=== PATIENT | male | born 1990 | race Caucasian/White ===

== ENCOUNTER 2016-10-31 14:46 | Emergency (ER) | payer BC ==
--- NOTE | ~2016-10-31 | CT2 ---
[facility] A Service of [facility] & [facility] RADIOLOGY TEXT RESULTS PATIENT: FARTUN CINTRON LOCATION: SED : [birth year] UNIT #: [id number] AGE: [address]: Ralph Toscano MD SEX: M ORDER DR: [id number] [address] [address] [id number] E MR#: [id number] Acc #: [id number] NAME: FARTUN CINTRON : 1990 SEX: M STUDY DATE/TIME: 10/31/2016 16:13 UNIT: SED ROOM: STUDY DESCRIPTION: CT Abd and Pelv W Cont Attending Physician: aRlph Toscano M.D. Ordering Physician: Ralph Toscano M.D. MEDICAL IMAGING REPORT This report is preliminary unless electronic signature is present. EXAM CT abdomen and pelvis HISTORY Right flank pain. Right hip pain. Fell rock-climbing yesterday. TECHNIQUE CT abdomen and pelvis performed with intravenous administration of 100 cc of Isovue-370. COMPARISON STUDIES No prior CTs of abdomen and pelvis for comparison. FINDINGS The lung bases are clear. Inferior heart and pericardium unremarkable. Subtle area of decreased density segment 4 of the liver, adjacent to the falciform ligament, most typical of focal fatty infiltration. Liver otherwise unremarkable. Gallbladder, spleen show a tiny subcentimeter focus of hypodensity in the anterior spleen, likely small splenic cyst. No traumatic abnormality. The pancreas, adrenal glands, kidneys are unremarkable. CT PELVIS: No inguinal adenopathy. Urinary bladder unremarkable. No fluid collections in the pelvis. No pelvic or retroperitoneal adenopathy. Distal esophagus, stomach, small bowel, appendix, colon unremarkable. Some images degraded by motion artifact. No evidence of vascular trauma. Aorta normal caliber. Bony structures show inferior endplate irregularity at the T11, T12 and L1 levels, likely reflecting combination of Schmorl nodes and incomplete apophyseal union. These do not have an appearance suggesting acute fracture. There is some loss of anterior L1, T12 and T11 vertebral body heights. Associated intervertebral disc space narrowing at the thoracolumbar junction. I favor that these are acute abnormalities. STS. [facility] A Service of [facility] & [facility] RADIOLOGY TEXT RESULTS PATIENT: FARTUN CINTRON LOCATION: SED : [birth year] UNIT #: [id number] AGE: [address]: Ralph Toscano MD SEX: M ORDER DR: There is no adjacent soft tissue abnormality. No clearly acute bony abnormality. There is some mild subcutaneous fat stranding in the subcutaneous fat of the right paracentral posterior pelvis at upper sacral level, likely reflecting the patient's trauma. There is no soft tissue defect, subcutaneous air or radiodense foreign body. IMPRESSION 1. No intra-abdominal or pelvic solid organ trauma suggested. No acute appearing abnormality within the abdomen or pelvis. Focal fatty infiltration in liver. 2. Subcutaneous fat stranding and haziness in the posterior right paracentral pelvic wall soft tissues at level of the upper to mid-sacrum without soft tissue defect, subcutaneous air or radiodense foreign body. This is felt to reflect the patient's stated trauma. 3. There is no evidence of acute bony abnormality. 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 Findings are felt to be chronic in time course and not to reflect the patient's acute trauma. Dictated by... Edmond Fields M.D. THIS IS AN ELECTRONICALLY VERIFIED REPORT Edmnod Fields M.D. at 11/02/2016 11:31 AM Fahad TD: 11/01/2016 00:36 JOB #: [id number] MEDICAL IMAGING REPORT Page 1 of 1
[2016-10-31 15:33] LABS: MICRO INDICATED? NO; URINE APPEARANCE CLEAR; URINE BILIRUBIN NEG (NEG); URINE BLOOD NEG (NEG); URINE COLOR YELLOW; URINE GLUCOSE NEG (NORM); URINE KETONE NEG (NEG); URINE LEUKOCYTE ESTERASE NEG (NEG); URINE NITRATE NEG (NEG); URINE PH 5.5 (5-8); URINE PROTEIN NEG (NEG); URINE SOURCE CLEAN CATCH; URINE SPECIFIC GRAVITY 1.015 (1.003-1.035)
[2016-10-31 15:38] LABS: BASOPHIL# 0.1 X10e3 (0-0.3); BASOPHIL% 0.8 % (0-2.5); DIFF IND NO; EOSINOPHIL# 0.4 X10e3 (0-0.7); HEMATOCRIT 40.9 % (38.0-50.0); LYMPHOCYTE# 2.5 X10e3 (1.0-3.5); LYMPHOCYTE% 20.7 % (17.0-45.0); MEAN CELL VOLUME 89.1 FL (83-96); MEAN CORPUSCULAR HEMOGLOBIN 30.5 PG (28-34); MEAN CORPUSCULAR HGB CONC 34.2 g/dL (30-36); MONOCYTE# 0.8 X10e3 (0-1.0); MONOCYTE% 6.3 % (3.0-12.0); NEUTROPHIL# 8.4 X10e3 (1.5-7.1); NEUTROPHIL% 69.2 % (40-75); PLATELET COUNT 285 X10e3 (140-420); RED BLOOD COUNT 4.59 X10e (3.90-5.60); RED CELL DISTRIBUTION WIDTH 13.3 % (11.0-15.5); WHITE BLOOD COUNT 12.1 X10e3 (4.0-10.5)
[2016-10-31 15:54] LABS: ALBUMIN SERUM 4.5 g/dL (3.5-5.0); ALKALINE PHOSPHATASE 58 U/L (32-92); ALT (SGPT) 20 U/L (10-40); AST (SGOT) 32 U/L (10-42); BILIRUBIN,TOTAL 0.5 mg/dL (0.2-2.0); BLOOD UREA NITROGEN 8 mg/dL (9-23); CALCIUM SERUM 9.3 mg/dL (8.4-10.2); CARBON DIOXIDE 24 mmol/L (22-31); CHLORIDE 102 mmol/L (100-111); CREATININE SERUM 0.8 mg/dL (0.6-1.4); GLOM FILT RATE Estimated 125.1 mL/min (>60); GLUCOSE FASTING 92 mg/dL (70-110); POTASSIUM 3.3 mmol/L (3.5-5.1); PROTEIN TOTAL SERUM 7.7 g/dL (6.0-8.3); SODIUM 136 mmol/L (135-145)
[2016-10-31 16:00] LABS: BILIRUBIN, DIRECT <0.1 mg/dL (0.0-0.2); BILIRUBIN,INDIRECT 0.4 mg/dL (0.0-0.9)
== END 2016-10-31 17:36 | disposition home or self-care (01) ==
LOC: SED 14:46
PROVIDERS: Emergency Medicine
DX: S39.92XA Unspecified injury of lower back, initial encounter (principal); W17.89XA Other fall from one level to another, initial encounter; Y92.828 Other wilderness area as the place of occurrence of the external cause
CPT/HCPCS: 36415; 74177; 80048; 80076; 81003; 85025; 99284; Q9967